=== PATIENT | female | born 1995 | race Caucasian/White ===

== ENCOUNTER 2017-01-27 13:09 | Emergency (ER) | payer MEDICAID ==
[2017-01-27 13:13] VITALS: BP 153/74; PULSE 98; RESP 20; TEMP 97; O2SAT 99
[2017-01-27] MEDS ORDERED: TDAP Vaccine 0.5 mL Syr IM ONE (13:33)
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
[2017-01-27] MEDS ORDERED: Silver Sulfadiazine 1% CREAM (50 gm) TOP STA (15:01)
== END 2017-01-27 15:33 | disposition home or self-care (01) ==
LOC: H.ER 13:09
DX: T30.0 Burn of unspecified body region, unspecified degree (principal); X12.XXXA Contact with other hot fluids, initial encounter; Y92.89 Other specified places as the place of occurrence of the external cause